=== PATIENT | male | born 1990 | race Hispanic/Latino ===

== ENCOUNTER 2021-07-27 10:45 | Emergency (ER) | payer OTHER ==
[~2021-07-27] VITALS: Ht 172.7 cm; Wt 70.9 kg
[2021-07-27] MEDS ORDERED: AUGMENTIN 875-1 EACH PO (12:45)
== END 2021-07-27 13:06 | disposition home or self-care (01) ==
LOC: ED 10:45
DX: L03.116 Cellulitis of left lower limb (principal)
CPT/HCPCS: 93971; 99284-25

== ENCOUNTER 2021-10-08 00:09 | Emergency (ER) | payer OTHER ==
[~2021-10-08] VITALS: Ht 172.7 cm; Wt 70.3 kg
[~2021-10-08 00:09] MED LIST: AUGMENTIN 875-1 EACH PO
[2021-10-08] MEDS ORDERED: AMOX TR-K CLV1 EAC1 PO (01:19)
[2021-10-08] MEDS ORDERED: CEPHALEXIN500 M1 PO (01:54)
[2021-10-08] MEDS ORDERED: BACTRIM DS TAB1 EACH PO (01:54)
--- NOTE | 2021-10-08 17:16 | EKG ---
[facility] [address] [place] [address] Signed Marked sinus bradycardia with 1st degree AV block with premature atrial complexes Abnormal ECG No previous ECGs available Confirmed by ADAMS GOETZ MD ([id number] on 10/08/2021 5:16:31 PM Electronically Signed By: ADAMS GOETZ MD 10/08/21 1716 PATIENT NAME: MARIANA WAGONER Electrocardiogram DATE OF : 89 PHYSICIAN: ADAMS GOETZ MD REPORT #: [id number] REPORT IS CONFIDENTIAL AND NOT TO BE RELEASED WITHOUT AUTHORIZATION
== END 2021-10-08 02:06 | disposition home or self-care (01) ==
LOC: ED 00:09
DX: L03.116 Cellulitis of left lower limb (principal); Z79.899 Other long term (current) drug therapy
CPT/HCPCS: 80053; 84484; 85025; 93005; 93010; 93971; 99284-25

== ENCOUNTER 2021-12-30 17:01 | Emergency (ER) | payer OTHER ==
[~2021-12-30] VITALS: Ht 172.7 cm; Wt 70.3 kg
[~2021-12-30 17:01] MED LIST changes: +AMOX TR-K CLV1 EAC1 PO; +BACTRIM DS TAB1 EACH PO; +CEPHALEXIN500 M1 PO
[2021-12-30] MEDS ORDERED: DOXYCYCLINE HY100 MG PO (21:50)
== END 2021-12-30 22:10 | disposition home or self-care (01) ==
LOC: ED 17:01
DX: L03.116 Cellulitis of left lower limb (principal)
CPT/HCPCS: 36415; 71045; 73590; 80053; 81001; 83605; 85025; 93971; 96365; 99284-25; A9270; J3370; J7030; J7060